=== PATIENT | female | born 1950 | race Caucasian/White ===

== ENCOUNTER 2018-01-29 02:02 | Outpatient (CLI) | payer BC, SELFPAY ==
[2018-01-29 16:30] LABS: HCT 38.8 % (36.0-46.0); HGB 12.9 g/dL (12.0-15.5); Mean Corp. HGB Concentration 33.2 g/dL (32.0-36.0); Mean Corpuscular Hemoglobin 29.8 pg (27.0-33.0); Mean Corpuscular Volume 89.6 fL (80-95); Mean Platelet Volume 9.9 fL (8.0-11.0); Platelet Count 242 x1000/uL (130-400); RBC 4.33 m/cumm (4.00-5.20); RBC Distribution Width 12.9 % (11.7-14.6); White Blood Cell Count 8.54 k/cumm (4.4-10.8)
[2018-01-29 17:39] LABS: ALT 34 U/L (12-78); AST 29 U/L (15-37); Albumin 3.9 g/dL (3.4-5.0); Alkaline Phosphatase 86 U/L (46-116); Anion Gap 11.1 mmol/L (3-11); BUN 21 mg/dL (7-18); Bilirubin, Total 0.5 mg/dL (0.2-1.0); CO2 25.9 mmol/L (21.0-32.0); CREATININE 1.01 mg/dL (0.55-1.02); Chloride 104 mmol/L (98-107); Cholesterol 217 mg/dL (50-200); Estimated GFR 54.51 (mL/min/1.73m2); Glucose 84 mg/dL (70-100); HDL Cholesterol 62 mg/dL (40-60); LDL CHOLESTEROL 125 mg/dL (<100); Sodium 141 mmol/L (136-145); Total Protein 7.4 g/dL (6.4-8.2); Triglyceride 175 mg/dL (30-150)
[2018-01-29 18:20] LABS: Calcium 8.8 mg/dL (8.5-10.1)
== END 2018-01-29 02:22 ==
PROVIDERS: PCP Family Medicine; Visit Provider Family Medicine
DX: D69.3 Immune thrombocytopenic purpura (principal); E78.5 Hyperlipidemia, unspecified; Z01.818 Encounter for other preprocedural examination; Z86.2 Personal history of diseases of the blood and blood-forming organs and certain disorders involving the immune mechanism
CPT/HCPCS: 80053; 80061; 83721; 85027

== ENCOUNTER 2018-02-08 08:58 | Day surgery (SDC) | payer BC, SELFPAY ==
--- NOTE | 2018-02-06 21:04 | POEE_ITS ---
History of Present Illness Narrative: The patient is a 67-year-old lady who presented with complaints of progressive decreased vision in her left eye at distance and intermediate. She notes her distance vision is blurry and has difficulty reading road signs. She also has significant difficulty with glare from headlights. On examination she was noted to have moderate nuclear and cortical cataract of the right eye with visual acuity of 20/100. The option of cataract surgery was offered to the patient and she wished to proceed. PFSH Family History Mother Diabetes Essential hypertension Heart disease Hyperlipidemia Father Personal history of malignant neoplasm Heart disease Myocardial infarction Parkinson's disease Sister Diabetes Essential hypertension Grandmother Pulmonary tuberculosis Grandfather Heart disease Grandmother Heart disease Sister No problems noted. Medical History Cortical cataract of right eye (Acute) Nuclear sclerotic cataract of right eye (Acute) Idiopathic angioedema Idiopathic thrombocytopenia purpura Left ventricular outflow obstruction NAUSEA WITH ANESTHESIA Thrombocytopenia Social History Smoking/Tobacco Use Status: Former Tobacco Use Surgical History Appendectomy section Colonoscopy - IV Sedation (03/24/16) Lithotripsy (~2000) Open Carpal Tunnel release Meds Home Medications Medication Instructions Recorded Confirmed Type calcium carbonate-vitamin D3 1,000 unit PO DAILY 03/18/13 02/04/18 History cetirizine [Zyrtec] 10 mg PO DAILY tab-cap 03/18/13 02/04/18 History epinephrine [Epipen 2-Henry] 0.3 mg IM ONCE #2 syringe 04/02/17 02/04/18 Rx simvastatin 20 mg PO DAILY #90 tab-cap 04/04/17 02/04/18 Rx Varicella-Zoster Ge/As01b/Pf 50 mcg IM ONCE #1 kit 10/02/17 01/23/18 Clinic [Shingrix Vial Kit] Allergies Allergy/AdvReac Type Severity Reaction Status Date / Time amoxicillin trihydrate Allergy Severe Hives Unverified 01/23/18 15:15 [From Augmentin] potassium clavulanate Allergy Severe Hives Unverified 01/23/18 15:15 [From Augmentin] Sulfa (Sulfonamide Allergy Severe Hives Unverified 01/23/18 15:15 Antibiotics) allopurinol Allergy Unknown Verified 02/04/18 14:09 Exam OCULAR EXAM:: Visual acuity at distance: Corrected to 20/100 OD, 20/30 OS Pupils: Pupils equal, round, and reactive without afferent pupillary defect IOP: 16 OD 16 OS. Extraocular Motility: Normal Pertinent Slit Lamp Findings: Significant for pupils dilating to 6 mm OU. 2+ nuclear with 1+ cortical cataract OD. 1-2+ nuclear with 1+ cortical cataract OS. Dilated Funduscopic Examination: Disc cupping is 0.2 OU with good color. The optic nerves have good perfusion and normal color. The retinal vasculature is normal without significant tortuosity or abnormality. The maculas are normal in appearance with normal contour and foveal reflex appropriate for age. The peripheral retina and vitreous are normal. BRIGHTNESS ACUITY TESTING (BAT):: Off right eye, 20/100 Low: 20/200 Medium: 20/200 High: 20/400 Assessment and Plan (1) Nuclear sclerotic cataract of right eye: Current visit: No Status: Acute Assessment: Visually significant cataract, right eye. Plan: Cataract extraction with intraocular lens implantation, right eye (2) Cortical cataract of right eye: Current visit: No Status: Acute Assessment: Visually significant cataract, right eye. Plan: Cataract extraction with intraocular lens implantation, right eye Note: NOTE:: The details of the planned surgery, including the risks, indications, limitations,expectations,outcome and possible complications were explained to the patient. The patient understands the complications including, but not limited to: infection, hemorrhage, posterior dislocation of the lens or nuclear fragments which may require the intervention of a vitreoretinal surgeon, possible loss of the eye, or from anesthetic complications. The patient has been made aware of the option of not having surgery, that vision following surgery may not be equal to that prior to surgery, and that the planned surgery may not achieve the intended results. Following this discussion, which the patient appeared to understand, the patient wishes to proceed with cataract surgery with lens implantation of the affected eye to improve and maximize vision.
[2018-02-08 09:29] VITALS: BP 166/95; PULSE 78; RESP 16; TEMP 35.9; O2SAT 99
[2018-02-08] MEDS: Lidocaine 2% Jelly 6 ML SYR (10:19)
[2018-02-08] MEDS: Balanced Salt Soln.-PLUS 500 ML BAG (10:23)
[2018-02-08] MEDS: Povidone-Iodine Ophth 30 ML BTL (10:23)
--- NOTE | 2018-02-08 10:48 | W.PM.DSUDISC ---
Discharge Plan Discharge Details Attending Provider: Puma Villalpando Primary Care Provider: Oxana Cantu Home Meds and New Rx's Prescriptions: No Action cetirizine [Zyrtec] 10 MG tablet 10 mg PO DAILY RF: 0 calcium carbonate-vitamin D3 1 EACH tablet 1,000 unit PO DAILY RF: 0 epinephrine [EpiPen 2-Henry] 0.3 MG/0.3 ML auto-injector 0.3 mg IM ONCE Qty: 2 RF: 0 simvastatin 20 MG tablet 20 mg PO DAILY Qty: 90 RF: 12 Varicella-Zoster Ge/As01b/Pf [Shingrix Vial Kit] 50 MCG INJ 50 mcg IM ONCE Qty: 1 RF: 1 Discharge Instructions Stand Alone Forms: Post-op Topical Cataract, Genaro Elliott (DSU) DS: Diagnosis Discharge Diagnosis (1) Nuclear sclerotic cataract of right eye: Status: Resolved (2) Cortical cataract of right eye: Status: Resolved
--- NOTE | 2018-02-08 10:49 | W.PM.OP ---
Date of service: 02/08/18 Time of Service: 10:49 Operative Note PRE-OP DIAGNOSIS: Cataract, right eye POST-OP DIAGNOSIS: same SURGEON: Puma Villalpando ANESTHESIA: MAC and local (sub-tenon's anesthetic infiltration) PATHOLOGY: none sent COMPLICATIONS: None Patient was transported to: same day Patient's condition: stable Implants: [employer] / [employer] Tecnis ZCB00 Indications: Progressive decreased vision due to cataract, right eye Procedure Description: CATARACT SURGERY OPERATIVE REPORT PREOPERATIVE DIAGNOSIS: Nuclear/cortical cataract, right eye POSTOPERATIVE DIAGNOSIS: Same OPERATION: Cataract extraction using phacoemulsification with posterior chamber intraocular lens implant, right eye. IOL: IOL Health Information Tech/Model: J&J Vision / PRETTY Tecnis ZCB00 IOL Power: + 25.0 diopters IOL Serial Number: [id number] Optic Diameter: 6.0mm Haptic/Overall Diameter: 13.0mm PHACO INFO: [employer]urion Vision System with OZil and Active Fluidics Cumulative Dispersed Energy (CDE): 8.86 seconds SURGEON: Puma Villalpando MD, SALMA ANESTHESIA: Monitored Anesthesia Care (MAC), with local sub-tenon's anesthetic infiltration COMPLICATIONS: None SPECIMENS: None INDICATIONS FOR PROCEDURE: The patient is a 67-year-old lady with history of diminished visual acuity in her right eye. She was noted to have significant nuclear and cortical cataract. She was significantly symptomatic that she desires cataract surgery and attempt to improve and maximize her vision PROCEDURE: The correct surgical eye was identified and marked as the right eye and the pupil was dilated in the preoperative area using mydriatics, cycloplegics, and NSAIDS (except in aspirin allergic patients). The dilated pupil size was 7.0 mm. Oral sedation was administered in the form of an Imprimis MKO Melt (midazolam 3mg/ketamine 25mg/ondansetron 2mg). The patient was brought to the operating room where cardiopulmonary monitoring was instituted and surgical time-out was performed, confirming the correct operative eye and IOL power. Topical anesthesia was administered and ophthalmic povidone-iodine 5% was instilled into the conjunctival fornices. Lidocaine gel was applied to the cornea and the ping-ocular area was prepped with Betadine 10% solution and draped in the usual sterile fashion for intraocular surgery. Steri-strips were used to cover the lashes and lid margins and an adhesive eye drape was placed. Care was taken to isolate the lashes and lid margins under the Steri-strips and adhesive eye drape. A lid speculum was placed between the lids of the operative eye and the Cassia-Shirley operating microscope was maneuvered into position. Travis scissors were then used to make a conjunctival buttonhole approximately 6mm posterior to the limbus in the inferonasal quadrant. Blunt dissection was carried out to expose bare sclera, and a blunt-tipped sub-tenon?s anesthesia cannula was introduced and passed posteriorly along the globe where non-preserved plain lidocaine was injected into posterior sub-Tenon?s space. A sideport knife was used to make a paracentesis port at the 7:00 postion and the anterior chamber was filled with Healon GV. A 2.4mm keratome knife was used to create a half-thickness groove at the limbus and then to construct a three-plane near-clear corneal tunnel extending 2.0mm into clear cornea at the 10:00 position. A flap was raised on the anterior capsule and capsulorhexis forceps were used to complete a continuous curvilinear capsulorhexis of 4.5 mm. Balanced salt solution was then used to perform cortical cleaving hydrodissection and nuclear hydrodelineation until the lens could be freely rotated within the capsular bag. The lens nucleus was then disassembled and removed within the capsular bag and iris plane using phacoemulsification. Residual cortical material was removed using the 45-degree angled silicone I/A tip with 0.3mm port. The posterior capsule was carefully polished to remove as much residual lens epithelial cells as safely possible. The capsular bag was then inflated and the anterior chamber deepened with viscoelastic. The lens implant described above was inserted into the capsular bag using the PRETTY [place] Injector. A Kuglen hook was used to dial the IOL into position. Residual viscoelastic was then removed first from posterior to the IOL, then from the anterior chamber using the I/A handpiece. The lens implant was noted to center nicely within the capsular bag. The incisions were stromally hydrated, and the anterior chamber was reformed using BSS. Then 0.4cc of moxifloxacin 1.5mg/ml were injected into the capsular bag and anterior chamber. The incisions were checked with a Weck spear and found to be secure. Several drops of ophthalmic povidone-iodine 5% were then applied to the eye followed by two drops of Imprimis combination moxifloxacin/dexamethasone solution. The drapes were removed and a clear plastic protective eye shield was placed over the eye. The patient was then returned to Same Day Surgery in stable condition.
[2018-02-08 11:05] VITALS: BP 131/91; PULSE 69; RESP 16; TEMP 36; O2SAT 97
== END 2018-02-08 11:17 | disposition home or self-care (01) ==
LOC: SUR 08:59
PROVIDERS: PCP Family Medicine; Visit Provider Ophthalmology
PROC: (CPT 66984; principal; 2018-02-08 10:50)
DX: H25.811 Combined forms of age-related cataract, right eye (principal)
CPT/HCPCS: 66984; V2632

== ENCOUNTER 2018-02-22 09:04 | Day surgery (SDC) | payer BC, SELFPAY ==
--- NOTE | 2018-02-21 12:35 | POEE_ITS ---
History of Present Illness Chief Complaint: Progressive decreased vision, left eye Narrative: Patient is a 67-year-old lady with history of progressive decreased vision of both distance and near in both eyes. She has significant difficulty driving at night. On examination she was noted to have moderate bilateral nuclear and cortical cataracts. She was significantly symptomatic that she desires cataract surgery which was performed OD on 02/08/2018. Postoperatively she has regained uncorrected vision of 20/30 in the right eye. She now presents for cataract surgery in the left eye. NOTE: The Chief Complaint, HPI, Past Medical History, Past Surgical History, Family History, Social History, Medications, and complete Ophthalmic Exam with detailed Assessment and Plan have already been documented in the patient's outpatient ophthalmic record and are not covered again in detail here. PFSH Family History Mother Diabetes Essential hypertension Heart disease Hyperlipidemia Father Personal history of malignant neoplasm Heart disease Myocardial infarction Parkinson's disease Sister Diabetes Essential hypertension Grandmother Pulmonary tuberculosis Grandfather Heart disease Grandmother Heart disease Sister No problems noted. Medical History Idiopathic angioedema Idiopathic thrombocytopenia purpura Left ventricular outflow obstruction NAUSEA WITH ANESTHESIA Thrombocytopenia Social History Smoking/Tobacco Use Status: Former Tobacco Use Surgical History Status post cataract extraction and insertion of intraocular lens of right eye ( Acute 02/08/18) Appendectomy section Colonoscopy - IV Sedation (03/24/16) Lithotripsy (~2000) Open Carpal Tunnel release Meds Home Medications Medication Instructions Recorded Confirmed Type calcium carbonate-vitamin D3 1,000 unit PO DAILY 03/18/13 02/08/18 History cetirizine [Zyrtec] 10 mg PO DAILY tab-cap 03/18/13 02/08/18 History epinephrine [Epipen 2-Henry] 0.3 mg IM ONCE #2 syringe 04/02/17 02/08/18 Rx simvastatin 20 mg PO DAILY #90 tab-cap 04/04/17 02/08/18 Rx Varicella-Zoster Ge/As01b/Pf 50 mcg IM ONCE #1 kit 10/02/17 02/08/18 Clinic [Shingrix Vial Kit] Allergies Allergy/AdvReac Type Severity Reaction Status Date / Time amoxicillin trihydrate Allergy Severe Hives Unverified 01/23/18 15:15 [From Augmentin] potassium clavulanate Allergy Severe Hives Unverified 01/23/18 15:15 [From Augmentin] Sulfa (Sulfonamide Allergy Severe Hives Unverified 01/23/18 15:15 Antibiotics) allopurinol Allergy Unknown Verified 02/04/18 14:09 Exam OCULAR EXAM:: Visual acuity at distance: Uncorrected 20/30 right eye. Corrected to 20/20 right eye. Corrected vision is 20/70, left eye. Pupils: Pupils equal, round, and reactive without afferent pupillary defect IOP: 16 OD, 16 OS. Extraocular Motility: Normal Pertinent Slit Lamp Findings: Significant for pupils dilating to 6 mm OU. Well- positioned PCIOL OD with clear posterior capsule. 1-2+ nuclear with 1+ cortical cataract OS. Dilated Funduscopic Examination: Disc cupping is 0.2 OU with good color. The optic nerves have good perfusion and normal color. The retinal vasculature is normal without significant tortuosity or abnormality. The maculas are normal in appearance with normal contour and foveal reflex appropriate for age. The peripheral retina and vitreous are normal. BRIGHTNESS ACUITY TESTING (BAT):: Off left eye 20/70 Low: 20/40 Medium: 20/60 High: 20/60 Assessment and Plan (1) Cortical cataract of left eye: Current visit: No Status: Acute Assessment: Visually significant cataract, left eye. Plan: Cataract extraction with intraocular lens implantation, left eye (2) Nuclear sclerotic cataract of left eye: Current visit: No Status: Acute (3) Status post cataract extraction and insertion of intraocular lens of right eye: Current visit: No Status: Acute Assessment: Visually significant cataract, left eye. Plan: Cataract extraction with intraocular lens implantation, left eye Note: NOTE:: The details of the planned surgery, including the risks, indications, limitations,expectations,outcome and possible complications were explained to the patient. The patient understands the complications including, but not limited to: infection, hemorrhage, posterior dislocation of the lens or nuclear fragments which may require the intervention of a vitreoretinal surgeon, possible loss of the eye, or from anesthetic complications. The patient has been made aware of the option of not having surgery, that vision following surgery may not be equal to that prior to surgery, and that the planned surgery may not achieve the intended results. Following this discussion, which the patient appeared to understand, the patient wishes to proceed with cataract surgery with lens implantation of the affected eye to improve and maximize vision.
[2018-02-22 09:22] VITALS: BP 146/93; PULSE 71; RESP 16; TEMP 35.4; O2SAT 99
[2018-02-22] MEDS: Balanced Salt Soln.-PLUS 500 ML BAG (10:26)
[2018-02-22] MEDS: Povidone-Iodine Ophth 30 ML BTL (10:27)
[2018-02-22] MEDS: Lidocaine 2% Jelly 6 ML SYR (10:27)
[2018-02-22] MEDS: Lidocaine 1% Pres-Free 5 ML VIAL (10:27)
--- NOTE | 2018-02-22 10:46 | W.PM.DSUDISC ---
Discharge Plan Discharge Details Attending Provider: Puma Villalpando Primary Care Provider: Oxana Cantu Home Meds and New Rx's Prescriptions: No Action cetirizine [Zyrtec] 10 MG tablet 10 mg PO DAILY RF: 0 calcium carbonate-vitamin D3 1 EACH tablet 1,000 unit PO DAILY RF: 0 epinephrine [EpiPen 2-Henry] 0.3 MG/0.3 ML auto-injector 0.3 mg IM ONCE Qty: 2 RF: 0 simvastatin 20 MG tablet 20 mg PO DAILY Qty: 90 RF: 12 Varicella-Zoster Ge/As01b/Pf [Shingrix Vial Kit] 50 MCG INJ 50 mcg IM ONCE Qty: 1 RF: 1 Discharge Instructions Stand Alone Forms: Post-op Topical Cataract, Genaro Elliott (DSU) DS: Diagnosis Discharge Diagnosis (1) Status post cataract extraction and insertion of intraocular lens of left eye: Status: Acute
--- NOTE | 2018-02-22 10:51 | ROE_ITS ---
Date of service: 02/22/18 Time of Service: 10:49 Operative Note DATE OF PROCEDURE: 02/22/18 PRE-OP DIAGNOSIS: Cataract, left eye POST-OP DIAGNOSIS: same PROCEDURE: Cataract extraction using phacoemulsification with intraocular lens implant, left eye SURGEON: Puma Villalpando ANESTHESIA: MAC and local (sub-tenon's anesthetic infiltration) PATHOLOGY: none sent COMPLICATIONS: None Patient was transported to: same day Patient's condition: stable Implants: [employer] / [employer] Tecnis ZCB00 Indications: Progressive decreased vision due to cataract, left eye Procedure Description: CATARACT SURGERY OPERATIVE REPORT PREOPERATIVE DIAGNOSIS: Nuclear/cortical cataract, left eye POSTOPERATIVE DIAGNOSIS: Same OPERATION: Cataract extraction using phacoemulsification with posterior chamber intraocular lens implant, left eye. IOL: IOL Representative/Model: J&J Vision / PRETTY Tecnis ZCB00 IOL Power: + 24.5 diopters IOL Serial Number: [id number] Optic Diameter: 6.0mm Haptic/Overall Diameter: 13.0mm PHACO INFO: [employer]oj [employer] Vision System with OZil and Active Fluidics Cumulative Dispersed Energy (CDE): 6.16 seconds SURGEON: Puma Villalpando MD, SALMA ANESTHESIA: Monitored Anesthesia Care (MAC), with local sub-tenon's anesthetic infiltration COMPLICATIONS: None SPECIMENS: None INDICATIONS FOR PROCEDURE: The patient is a 67-year-old lady with history of symptomatic bilateral nuclear and cortical cataracts. She is Ardie undergone cataract surgery in her right eye on 02/08/2018. She is doing well postoperatively in her right eye and now presents for cataract surgery in the left eye. PROCEDURE: The correct surgical eye was identified and marked as the left eye and the pupil was dilated in the preoperative area using mydriatics, cycloplegics, and NSAIDS (except in aspirin allergic patients). The dilated pupil size was 8.0 mm. Oral sedation was administered in the form of an Imprimis MKO Melt (midazolam 3mg/ketamine 25mg/ondansetron 2mg). The patient was brought to the operating room where cardiopulmonary monitoring was instituted and surgical time-out was performed, confirming the correct operative eye and IOL power. Topical anesthesia was administered and ophthalmic povidone-iodine 5% was instilled into the conjunctival fornices. Lidocaine gel was applied to the cornea and the ping-ocular area was prepped with Betadine 10% solution and draped in the usual sterile fashion for intraocular surgery. Steri-strips were used to cover the lashes and lid margins and an adhesive eye drape was placed. Care was taken to isolate the lashes and lid margins under the Steri-strips and adhesive eye drape. A lid speculum was placed between the lids of the operative eye and the Cassia-Shirley operating microscope was maneuvered into position. Travis scissors were then used to make a conjunctival buttonhole approximately 6mm posterior to the limbus in the inferonasal quadrant. Blunt dissection was carried out to expose bare sclera, and a blunt-tipped sub-tenon? s anesthesia cannula was introduced and passed posteriorly along the globe where non-preserved plain lidocaine was injected into posterior sub-Tenon?s space. A sideport knife was used to make a paracentesis port at the 12:00 postion and the anterior chamber was filled with Healon GV. A 2.4mm keratome knife was used to create a half-thickness groove at the limbus and then to construct a three-plane near-clear corneal tunnel extending 2.0mm into clear cornea at the 3:00 position. A flap was raised on the anterior capsule and capsulorhexis forceps were used to complete a continuous curvilinear capsulorhexis of 5.0 mm. Balanced salt solution was then used to perform cortical cleaving hydrodissection and nuclear hydrodelineation until the lens could be freely rotated within the capsular bag. The lens nucleus was then disassembled and removed within the capsular bag and iris plane using phacoemulsification. Residual cortical material was removed using the 45-degree angled silicone I/A tip with 0.3mm port. The posterior capsule was carefully polished to remove as much residual lens epithelial cells as safely possible. The capsular bag was then inflated and the anterior chamber deepened with viscoelastic. The lens implant described above was inserted into the capsular bag using the PRETTY [employer] [place] Injector. A Kuglen hook was used to dial the IOL into position. Residual viscoelastic was then removed first from posterior to the IOL, then from the anterior chamber using the I/A handpiece. The lens implant was noted to center nicely within the capsular bag. The incisions were stromally hydrated , and the anterior chamber was reformed using BSS. Then 0.4cc of moxifloxacin 1.5mg/ml were injected into the capsular bag and anterior chamber. The incisions were checked with a Weck spear and found to be secure. Several drops of ophthalmic povidone-iodine 5% were then applied to the eye followed by two drops of Imprimis combination moxifloxacin/dexamethasone solution. The drapes were removed and a clear plastic protective eye shield was placed over the eye. The patient was then returned to Same Day Surgery in stable condition.
[2018-02-22 11:10] VITALS: BP 113/72; PULSE 67; RESP 16; TEMP 36.4; O2SAT 97
== END 2018-02-22 11:15 | disposition home or self-care (01) ==
LOC: SUR 09:04
PROVIDERS: PCP Family Medicine; Visit Provider Ophthalmology
PROC: (CPT 66984; principal; 2018-02-22 10:50)
DX: H25.812 Combined forms of age-related cataract, left eye (principal); Z98.41 Cataract extraction status, right eye; Z96.1 Presence of intraocular lens
CPT/HCPCS: 66984; V2632

== ENCOUNTER 2018-08-27 00:17 | Outpatient (CLI) | payer BC, SELFPAY ==
--- NOTE | 2018-08-27 16:00 | DI.MAMMO_ITS ---
SYMPTOM/DIAGNOSIS: SCREENING, Z12.31 MAMMOGRAMS: Mammograms were interpreted according to the usual protocol including computer analysis with CAD system, tomosynthesis and C view imaging. The breast tissue is of moderate radiodensity. There is no evidence of a mass. There are no suspicious calcifications and there has been no significant interval change when compared with prior images. SUMMARY: No evidence of malignancy. Category 1, yearly screening mammography is recommended. [facility] ASSESSMENT OF FINDINGS: Negative. Category 1. Patient will receive a letter notifying them of these results. BI-RADS category B. There are scattered areas of fibroglandular density.
== END 2018-08-27 00:37 ==
PROVIDERS: PCP Family Medicine; Visit Provider Family Medicine
DX: Z12.31 Encounter for screening mammogram for malignant neoplasm of breast (principal)
CPT/HCPCS: 77063; 77067

== ENCOUNTER 2019-02-11 16:04 | Outpatient (CLI) | payer BC, SELFPAY ==
[2019-02-11 16:29] LABS: HCT 39.6 % (36.0-46.0); HGB 13.3 g/dL (12.0-15.5); Mean Corp. HGB Concentration 33.6 g/dL (32.0-36.0); Mean Corpuscular Hemoglobin 29.3 pg (27.0-33.0); Mean Corpuscular Volume 87.2 fL (80-95); Platelet Count 262 x1000/uL (130-400); RBC 4.54 m/cumm (4.00-5.20); RBC Distribution Width 13.1 % (11.7-14.6); White Blood Cell Count 8.44 k/cumm (4.4-10.8)
== END 2019-02-11 16:24 ==
PROVIDERS: PCP Family Medicine; Visit Provider Nurse Practitioner
DX: D69.3 Immune thrombocytopenic purpura (principal)
CPT/HCPCS: 36415; 85027

== ENCOUNTER 2019-02-11 18:25 | Outpatient (REF) | payer BC, SELFPAY ==
--- NOTE | 2019-02-11 15:30 | PAPNONF_PTH ---
PATIENT: Nimco Leal LOC: [facility] U#:[id number] AGE/SX: 68/F ROOM: RE02/11/[address]: Shaylee Carter, PhD [employer] : 1950 BED: DIS: 02/11/2019 SPEC #: [id number] RECD: 02/11/19 18:52 STATUS: ANITA REHector #: [id number] ANAHI: 02/11/19 15:[address]: Shaylee Carter DEPT: [facility] Cytology RECD BY: Rosa Kearney ENTERED: 02/11/19 18:53 SP TYPE: ROSALES DUNN DR: Oxana Cantu MD, DC Tissues: 1 - BODY FLUID CYTO(SPUTUM/URINE)[facility] Procedures: BODY FLUID CYTO(URINE/SPUTUM) Comments: [id number] (TOTAL VOLUME = 70 ml's) (35 ml's URINE & 35 ml's CYTOLYT ADDED IN 2 CONTAINERS)
== END 2019-02-11 18:45 ==
LOC: LBN 18:25
PROVIDERS: PCP Family Medicine; Visit Provider Nurse Practitioner
DX: R31.9 Hematuria, unspecified
CPT/HCPCS: 88104

== ENCOUNTER 2019-11-04 01:36 | Outpatient (CLI) | payer BC, SELFPAY ==
--- NOTE | 2019-11-04 07:00 | DI.MAMMO_ITS ---
EXAM: MG MAMMO SCREENING CLINICAL HISTORY: screening, Z12.39 TECHNIQUE: Bilateral full field digital CC and MLO mammographic images were obtained with 3D tomosyn thesis and utilizing computer aided detection (CAD). COMPARISON: Available for comparison. FINDINGS: Masses/Architectural Distortion: None seen. Microcalcifications: No suspicious pleomorphic-type are seen. Skin Thickening/Nipple Retraction: None. IMPRESSION: 1. No significant interval change with no specific features of malignancy noted. 2. Unless there is more urgent need, screening mammography is recommended, as per [place] [employer] guidelines. BI-RADS Category 1 - Negative Breast Density - Category B - Scattered areas of fibroglandular density A negative radiographic report should not delay biopsy if a dominant or clinically suspicious mass is present. Up to ten percent of cancers are not identified on mammography. A negative report may reinforce clinical impression. Adenosis and dense breasts may obscure an underlying neoplasm. False positive reports average 6 to 10%. Patient will receive a letter notifying them of these results.
== END 2019-11-04 01:56 ==
PROVIDERS: PCP Family Medicine; Visit Provider Nurse Practitioner
DX: Z12.31 Encounter for screening mammogram for malignant neoplasm of breast (principal)
CPT/HCPCS: 77063; 77067

== ENCOUNTER 2019-11-04 02:40 | Outpatient (CLI) | payer BC, SELFPAY ==
[2019-11-04 09:57] LABS: HCT 40.3 % (36.0-46.0); HGB 13.7 g/dL (12.0-15.5); Mean Corpuscular Hemoglobin 29.5 pg (27.0-33.0); Mean Corpuscular Volume 86.7 fL (80-95); Mean Platelet Volume 9.8 fL (8.0-11.0); Platelet Count 261 x1000/uL (130-400); RBC 4.65 m/cumm (4.00-5.20); RBC Distribution Width 13.3 % (11.7-14.6); White Blood Cell Count 6.58 k/cumm (4.4-10.8)
[2019-11-04 10:16] LABS: Hemoglobin A1C 6.5 % (3.8-5.6)
[2019-11-04 10:52] LABS: ALT 49 U/L (14-59); AST 38 U/L (15-37); Albumin 4.1 g/dL (3.4-5.0); Alkaline Phosphatase 72 U/L (46-116); Anion Gap 12.5 mmol/L (3-11); BUN 20 mg/dL (7-18); Bilirubin, Total 0.6 mg/dL (0.2-1.0); CO2 23.5 mmol/L (21.0-32.0); CREATININE 1.02 mg/dL (0.55-1.02); Calcium 9.6 mg/dL (8.5-10.1); Calculated LDL 99 mg/dL (<100); Chloride 102 mmol/L (98-107); Cholesterol 181 mg/dL (<200); Estimated GFR 53.73 (mL/min/1.73m2); Glucose 124 mg/dL (74-106); HDL Cholesterol 59 mg/dL (40-60); Potassium 4.7 mmol/L (3.5-5.1); Sodium 138 mmol/L (136-145); Total Protein 7.5 g/dL (6.4-8.2); Triglyceride 118 mg/dL (<150)
[2019-11-04 11:16] LABS: Vitamin B12 402 pg/mL (193-986)
== END 2019-11-04 03:00 ==
PROVIDERS: PCP Family Medicine; Visit Provider Nurse Practitioner
DX: D69.3 Immune thrombocytopenic purpura (principal); E78.00 Pure hypercholesterolemia, unspecified; E78.5 Hyperlipidemia, unspecified; G56.00 Carpal tunnel syndrome, unspecified upper limb; R73.01 Impaired fasting glucose; R20.0 Anesthesia of skin; R20.2 Paresthesia of skin
CPT/HCPCS: 36415; 80053; 80061; 85027; 82607; 83036

== ENCOUNTER 2020-03-10 03:05 | Outpatient (CLI) | payer BC, SELFPAY ==
[2020-03-10 17:02] LABS: Hemoglobin A1C 6.1 % (<5.7)
[2020-03-10 17:24] LABS: TSH (W/Ref FT4) 4.51 uIU/mL (0.36-3.74)
[2020-03-10 17:43] LABS: FREE T4 0.81 ng/dL (0.76-1.46)
== END 2020-03-10 03:25 ==
PROVIDERS: PCP Family Medicine; Visit Provider Family Medicine
DX: E11.9 Type 2 diabetes mellitus without complications (principal); R20.0 Anesthesia of skin; R20.2 Paresthesia of skin
CPT/HCPCS: 36415; 83036; 84439; 84443

== ENCOUNTER 2020-04-13 09:14 | Outpatient (REF) | payer BC, SELFPAY ==
[2020-04-14 12:21] LABS: Campylobacter PCR Negative (Negative); Salmonella PCR Negative (Negative); Shiga Toxin PCR Negative (Negative); Shigella/Enteroinvasive Ecoli Negative (Negative)
== END 2020-04-13 09:34 ==
LOC: LBN 09:14
PROVIDERS: PCP Family Medicine; Visit Provider Family Medicine
DX: R19.7 Diarrhea, unspecified (principal)
CPT/HCPCS: 87329; 87505

== ENCOUNTER 2020-04-22 15:14 | Outpatient (REF) | payer BC, SELFPAY ==
--- NOTE | 2020-04-22 15:00 | SKI_PTH ---
PATIENT: Nimco Leal LOC: [facility] U#:[id number] AGE/SX: 69/F ROOM: RE04/22/[address]: Oxana Cantu MD, DC : 1950 BED: DIS: 04/22/2020 SPEC #: [id number] RECD: 04/23/20 12:50 STATUS: ANITA REQ #: [id number] ANAHI: 04/22/20 15:[address]: Oxana Cantu DEPT: Surgical Specimen RECD BY: Rosa Kearney Tissues: 1 - SKIN BIOPSY(SHAVE/PUNCH) Procedures: SKIN LEVEL 4 SPECIAL STAIN 1 Comments: [id number]
== END 2020-04-22 15:34 ==
LOC: LBN 15:14
PROVIDERS: PCP Family Medicine; Visit Provider Family Medicine
DX: L85.8 Other specified epidermal thickening (principal); R23.4 Changes in skin texture
CPT/HCPCS: 88305; 88312

== ENCOUNTER 2020-06-18 19:00 | Outpatient (CLI) | payer BC, SELFPAY ==
[2020-06-20 16:56] LABS: COVID-19 RT-PCR UVMMC Result Negative (Negative)
== END 2020-06-18 19:01 | disposition home or self-care (01) ==
LOC: LBO 06-23 19:00
PROVIDERS: PCP Family Medicine; Visit Provider Surgery
DX: Z20.822 Contact with and (suspected) exposure to COVID-19 (principal); Z01.818 Encounter for other preprocedural examination
CPT/HCPCS: U0003

== ENCOUNTER 2020-06-19 08:19 | Emergency (ER) | payer BC, SELFPAY ==
[2020-06-19] VITALS (23 sets, daily range): BP systolic 137–188; BP diastolic 74–94; PULSE 63–96; RESP 7–25; TEMP 36.4; O2SAT 93–99
--- NOTE | 2020-06-19 08:15 | RT.EKG_ITS ---
APPROVED REPORT Exam: Resting ECG Patient Location: E HR:83 bpm ECG Measurements Heart Rate 83 AXIS MD 160 P 24 QRSd 87 QRS 4 QT 385 T 45 QTc 452 Conclusion Sinus rhythm...normal P axis, V-rate 60- 99 Probable left atrial enlargement...P >50mS, <-0.10mV V1 Inferior infarct, age indeterminate...Q>35mS, T neg, II III aVF no stemi
--- NOTE | 2020-06-19 09:00 | W.ED.GENAD ---
Discharge Plan Disposition Patient Disposition: HOME Condition: Stable Discharge Details Clinical Impression: HTN (hypertension), Blood glucose elevated Primary Care Provider: Oxana Cantu ED Midlevel Provider: Lina Cruz Home Meds and New Rx's Prescriptions: No Action epinephrine [EpiPen 2-Henry] 0.3 mg/0.3 mL auto-injector 0.3 mg IM ONCE PRN (Reason: hypersensitivity reaction) Qty: 2 RF: 3 cetirizine [Zyrtec] 10 MG tablet 10 mg PO DAILY RF: 0 calcium carbonate-vitamin D3 1 EACH tablet 1,000 unit PO DAILY RF: 0 simvastatin 20 mg tablet 20 mg PO DAILY Qty: 90 RF: 12 triamcinolone acetonide 0.1 % cream 1 applic topical BID Qty: 80 RF: 0 Discharge Instructions Instructions: Hypertension (ED) Additional Instructions: Please return to the emergency department with any development of significant bleeding increasing blood pressure, chest pain, shortness of breath, difficulty with urination, vision changes. Please monitor your blood pressure 1-2 times daily I recommend morning and evening. Please follow-up with your primary care provider for continued discussion about medication management. Medical Decision Making Was noted to be 167/91 yesterday evening and 175/105 this morning on her home BP machine. She has had no chest pain, shortness of breath, visual changes or difficulty with urination. She is not currently on any blood pressure medications as she is being closely followed by her primary care provider Dr. Susannah Cantu and had had previous allergies/side effects to medications including amlodipine, lisinopril, hydrochlorothiazide. Since April they have been managing her blood pressure with diet and exercise. She shows me several blood pressure readings over the last couple of months and only readings yesterday evening and this morning were elevated to a mildly concerning level. Her initial blood pressure she came in was 188/81 however after a short period of time in the room and during my exam her blood pressure is noted to be 156/87. She continues to deny chest pain or shortness of breath. She has been without cough cold or congestion recently. She has had no fevers or chills. She has been able to eat and drink normally. She has had no increased frequency, urgency with urination, no dysuria or hematuria. Patient does endorse that she has had high levels of anxiety recently as she is scheduled for hernia repair of this coming Sunday. She was in her general surgeon's office this past Sunday and blood pressure was noted to be with systolics of 188 however by the time she had left the clinic visit her blood pressure had returned to a normal range. There planning to continue with surgery this coming Sunday. EKG is obtained and discussed with Dr. Rojas. No concerning findings at this time. Please see chart for further details. On reevaluation patient's blood pressure continues to decrease throughout her time here. She continues to be without chest pain or shortness of breath. Screening laboratories obtained for reassurance are significant for glucose noted to be 147. I discussed this with the patient she tells me she has also been monitoring this at home as she has been borderline high over the last couple of months. BUN is slightly elevated at 19. She does endorse that she has not been drinking fluids today and often does not drink enough water. She is drinking water as we speak. I have discussed with her that at this time she does not meet criteria for aggressive blood pressure reduction and that she should continue to monitor this at home. She continues to be significantly elevated she is encouraged to return here as needed as well as if she develops chest pain, shortness of breath or any other concerning symptoms. Otherwise as shared my note with patient's primary care provider today and recommended that if she does not hear back from them this coming Sunday that she call to schedule a follow-up appointment in clinic. Differential diagnosis includes but not limited to hypertension without signs of hypertensive emergency or urgency at this time. I suspect underlying stress causing some degree of increased of blood pressure. At this point we will proceed with EKG and basic labs including CBC and BMP. I will continue to monitor the patient's blood pressure while she is here. I will communicate with the primary care provider so they are aware of her visit here today and can continue to appropriately monitor blood pressure and medication adjustment on an outpatient basis. All of the patient's questions were answered and she felt comfortable with the care plan discussed. MATHEUS Rinaldi is a 69-year-old female who presents with concerns for high blood pressure noted this morning to be as high as 175/105 at home and last night 167/91 yesterday evening. She denies chest pain or shortness of breath. She is here to be checked as she cannot get in with her primary care provider because it is the weekend. General Date/Time Provider Initiated Documentation: 06/19/20 08:43. Related Data Home Medications Medication Instructions Recorded Confirmed calcium carbonate-vitamin D3 1,000 unit PO DAILY 03/18/13 06/19/20 cetirizine [Zyrtec] 10 mg PO DAILY tab-cap 03/18/13 06/19/20 simvastatin 20 mg tablet 20 mg PO DAILY #90 tab-cap 10/28/19 06/19/20 epinephrine 0.3 mg/0.3 mL 0.3 mg IM ONCE PRN #2 syrg 03/16/20 06/19/20 injection, auto-injector triamcinolone acetonide 0.1 % 1 applic TOPICAL BID #80 g 04/28/20 06/19/20 topical cream Previous Rx's Medication Instructions Recorded simvastatin 20 mg tablet 20 mg PO DAILY #90 tab-cap 10/28/19 epinephrine 0.3 mg/0.3 mL 0.3 mg IM ONCE PRN #2 syrg 03/16/20 injection, auto-injector triamcinolone acetonide 0.1 % 1 applic TOPICAL BID #80 g 04/28/20 topical cream Allergies Allergy/AdvReac Type Severity Reaction Status Date / Time amoxicillin trihydrate Allergy Severe Hives Unverified 06/19/20 08:32 [From Augmentin] potassium clavulanate Allergy Severe Hives Unverified 06/19/20 08:32 [From Augmentin] Sulfa (Sulfonamide Allergy Severe Hives Unverified 06/19/20 08:32 Antibiotics) clindamycin Allergy Intermediate Rash Verified 06/19/20 08:32 allopurinol Allergy Unknown Verified 06/19/20 08:32 losartan Allergy mouth Verified 06/19/20 08:32 numbness amlodipine AdvReac Tingling Verified 06/19/20 08:32 General Stated Complaint: GenMedical CIARRA: 3 Review of Systems All systems reviewed & are unremarkable except as noted in HPI and below [facility] Medical History Abnormal mammogram (04/05/05) Anxiety Carpal tunnel syndrome (08/03/07) Diabetes Glossodynia (07/04/12) Hematuria, unspecified IVP/Kileen F/U Hyperlipidemia 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) Impaired fasting glucose (09/14/14) Incisional hernia (07/04/12) Kidney stone (08/03/07) Uric acid Knee pain (09/14/14) Left ventricular outflow obstruction Left ventricular outflow tract obstruction (08/03/07) Systolic murmur; w/o significant obstruction at rest NAUSEA WITH ANESTHESIA Numbness and tingling Polyp of colon 04/16/13 TUBULAR ADENOMA Rupture of appendix (08/03/07) Sinus infection Spasm of thoracic back muscle Thrombocytopenia Upper back pain Surgical History Appendectomy section X 2 Colonoscopy - IV Sedation (03/24/16) 03/21/10 04/16/13 History of appendectomy History of section History of lithotripsy Lithotripsy (~2000) Open Carpal Tunnel release RIGHT Status post carpal tunnel release Status post cataract extraction and insertion of intraocular lens of left eye (02/22/18) Status post cataract extraction and insertion of intraocular lens of right eye (02/08/18) Family History Mother , AGE 83 Diabetes Essential hypertension Heart disease Hyperlipidemia Father , AGE 87 Myocardial infarction Parkinson's disease Colon cancer CHF (congestive heart failure) Sister , AGE 68 Diabetes Hypertension Heart disease Maternal Grandmother Pulmonary tuberculosis Maternal Grandfather Heart disease Paternal Grandmother , AGE 75 Heart disease Sister Celiac disease Social History Smoking/Tobacco Use Status: Former Tobacco Use Quit Date: 05/07/74 Tobacco: How many years used: 7 Smoking risk assessment performed?: Yes Alcohol Intake: current Alcohol Intake frequency: a few times a month Drug use: Never Substance use type: does not use Caregiver/Support person: No Household members: spouse Housing: house Communication Needs: None Do you need help understanding health information?: Never Pets and animals: No Sexually active: Yes Current gender identity: female What is your relationship status?: How often do you talk on the phone with friends or family?: three or more times per week How often do you get together with friends or relatives?: three or more times per week How often do you attend evangelical or congregation services?: 4 or more times per year Do you belong to any clubs or organized social groups?: yes Panel score (0-1 are the most socially isolated patients): 4 What type of physical activity do you participate in: walking and yoga Duration: 30-45 minutes/day Frequency: 1-2 times per week Jeannie/Zoroastrian: Confucianist Special jeannie needs: No Seatbelt use: always Helmet use: No Drive intox or ride w/intox xm1 tank driver: No Do you feel safe at home: Yes Do you feel safe in your relationship?: Yes Exam Narrative Exam Narrative: CONSTITUTIONAL: Afebrile, well-appearing older adult female, sitting in stretcher, in no acute distress. SKIN: [place], warm and moist. No diaphoresis, pallor, cyanosis, icterus or edema. No lesions, hives, petechiae or ecchymoses. EYES: Pupils equal and round. EOMI voluntarily. Conjunctivae clear w/o erythema or injection. Sclera white. HENT: Head normocephalic, atraumatic. NECK: Trachea midline. Neck supple with full range of motion. No nuchal rigidity. RESPIRATORY: CTAB. No wheezes, rhonchi or rales. Breathing non-labored. CARDIOVASCULAR: RRR with audible murmur noted, patient states she has had this lifelong. No rubs or gallops. S1/ S2 present. GI: BSP. Abdomen soft, nondistended, non-tender. No palpable masses or HSM. No rebound, guarding or rigidity. MUSCULOSKELETAL: Extremities appear atraumatic with no obvious deformities, cyanosis, clubbing, or edema and with FROM. NEURO: Cranial nerves II-XII grossly intact. No significant motor or sensory deficits appreciated in the upper or lower extremities. No obvious ataxia PSYCH: Appropriate mood and affect. Course Vital Signs Vital signs: Vital Signs Temperature 97.5 F L 06/19/20 08:26 Pulse 84 06/19/20 08:26 Respiratory Rate 23 06/19/20 08:26 Blood Pressure 188/81 H 06/19/20 08:26 Pulse Oximetry 98 06/19/20 08:26 Temperature 97.5 F L 06/19/20 08:26 Temperature Source Skin 06/19/20 08:26 Pulse 84 06/19/20 08:26 Respiratory Rate 23 06/19/20 08:26 Respiratory Effort Non-Labored 06/19/20 08:31 Blood Pressure 188/81 H 06/19/20 08:26 Blood Pressure Position Sitting 06/19/20 08:26 Pulse Oximetry 98 06/19/20 08:26 Oxygen Delivery Method Room Air 06/19/20 08:26 Oxygen Flow Rate 0 06/19/20 08:26 Pain Level 0 06/19/20 08:26
[2020-06-19 09:33] LABS: HCT 42.7 % (36.0-46.0); HGB 14.3 g/dL (11.2-15.7); MCH 29.4 pg (27.0-33.0); MCHC 33.5 % (32.0-36.0); MCV 87.9 fL (80-95); MPV 10.2 fL (8.0-11.0); Platelet Count 221 10^3/uL (130-400); RBC 4.86 10^6/uL (3.93-5.22); RDW 12.6 % (11.7-14.6); RDW-SD 40.4 fL; WBC 6.83 10^3/uL (4.4-10.8)
[2020-06-19 09:43] LABS: Anion Gap 10.9 mmol/L (3-11); BUN 19 mg/dL (7-18); CO2 25.1 mmol/L (21.0-32.0); CREATININE 0.9 mg/dL (0.55-1.02); Calcium 9.2 mg/dL (8.5-10.1); Chloride 105 mmol/L (98-107); Glucose 147 mg/dL (74-106); Potassium 3.9 mmol/L (3.5-5.1); Sodium 141 mmol/L (136-145)
== END 2020-06-19 10:35 | disposition home or self-care (01) ==
PROVIDERS: PCP Family Medicine; Visit Provider Physician Assistant Medical
DX: I10 Essential (primary) hypertension (principal); R73.9 Hyperglycemia, unspecified
CPT/HCPCS: 36415; 80048; 85027; 93005; 99283; 93010

== ENCOUNTER 2020-06-23 06:16 | Day surgery (SDC) | payer BC, SELFPAY ==
--- NOTE | 2020-06-21 13:50 | PDOC.ANES ---
Date of service: 06/21/20 Time of Service: 13:50 Anesthesia Note Report Anesthesia Note: Nimco has been off her BP medication for a period of time but was feeling her BP was too high. She recently was seen in our ED for this. As of today, she has started metoprolol and will monitor her blood pressure. She was in the 180's/100's in the ED. Today she is 150's/80's and feels well. She was advised if her BP is poorly controlled, then her procedure will likely be postponed. She is aware of this and will continue to take her medication as prescribed. Also of note is that she has had PONV and will likely require a TIVA.
[2020-06-23] VITALS (11 sets, daily range): BP systolic 94–137; BP diastolic 47–85; PULSE 49–58; RESP 16–25; TEMP 35.8–36.6; O2SAT 93–99
[2020-06-23] MEDS: Lactated Ringers 1,000 ML 80 ML IV (06:45)
--- NOTE | 2020-06-23 06:51 | ROE_ITS ---
Date of service: 06/23/20 Time of Service: 09:37 Operative Note Operative Note DATE OF PROCEDURE: 06/23/20 PRE-OP DIAGNOSIS: Ventral incisional Hernia POST-OP DIAGNOSIS: same PROCEDURE: Laparoscopic , hand assisted, incisional Hernia repair with mesh SURGEON: Slime Craven [facility] LE[facility]: Vero Levine ANESTHESIA TYPE: General LMA/ETT (ASA 2/ Romina Connor CRNA) Refer to Anesthesia Record ESTIMATED BLOOD LOSS: 25 PATHOLOGY: none sent COMPLICATIONS: None Patient was transported to: PACU Patient's condition: stable Implants: Ventralight ST Mesh with ECHO PS: REF [id number] LOT [id number] EXP 2021-07-04 Indications: Mrs. Leal is a pleasant 69-year-old female who underwent an open appendectomy many years ago. Shortly after her surgery she developed a small lump just to the right of her incision. She was diagnosed with an incisional hernia. It did really not bother her until about a year ago when she felt that it had grown in size and she was not able to completely reduce it. She denies any nausea, vomiting or changes in bowel habits. We discussed laparoscopic hernia repair as well as open hernia repair. Laparoscopic hernia repair is what I would recommend for her. We reviewed the surgery using a pamphlet. We reviewed the anatomy. We reviewed risks and benefits and alternatives. We also discussed Covid testing and quarantine requirements. Risks, benefits and complications have been reviewed. Complications include but are not limited to bleeding, pain, infection, injury to underlying structures like bowel and adverse reaction to the medication. Questions were entertained and answered to their satisfaction and they wished to proceed. No guarantees were given or implied. COVID-19 testing explained to the patient. Reason for test reviewed. Quarantine per state requirements reviewed with patient. Patient understands and agrees to testing. Findings: Entire omentum in the hernia defect that measured 8 x 3 cm Procedure Description: After informed consent was obtained the patient was taken to the operating room placed in the supine position, SCDs were applied, as well as monitors. A timeout was done. The patient was then placed under general anesthesia and intubated without any difficulty. At this point the abdomen was prepped and draped in a sterile surgical fashion with chlorhexidine. A second timeout was done and the patient's name, date of , operation to be performed, DVT prophylaxis, antibiotic given, and fire risk was assessed. 2% Percent lidocaine was injected into the dermis in the left upper quadrant. A small 12 mm incision was made with a 15 blade. The subcutaneous tissue was bluntly dissected with a hemostat. The fascia was grasped with cockers and the fascia was opened sharply with scissors. The 12 mm port was then placed under direct visualization. The abdomen was insufflated. The hernia defect was rosaline ntified along her old incision. The entire omentum was up in the hernia defect. The local anesthetic was then injected in the right upper quadrant area and a 5 mm incision was made with an 11 blade. A 5 mm port was then placed under direct visualization. A small 5 mm incision was made with an 11 blade and another 5 mm port was placed under direct visualization into the abdomen. The local anes thetic was then injected in the right upper quadrant area. Using a laparoscopic Ligasure the omentum was gently taken down. I was unable to get all the omentum down as it was tunneling laterally under skin. I started to tear the omentum as I was trying to gently reduce it. I made the decision to open her old incision to safely reduce the omentum. The camera was removed. 2% Lidocaine was injected along the midline incision. The incision was opened with a 10 blade. Dissection was taken down to the omentum within the hernia sac using cautery. The hernia sac was opened. The omentum was then gently removed out of the hernia sac under the skin laterally. The omentum was then gently placed back into the abdomen. The fascia was grasped with cockers. The defect was measured at 8 x 3 cm. A round 14.5 cm Ventralight mesh was placed into the abdomen. The ECHO balloon was induflated. Next 20 cc of exparel mixed 50/50 with 0.25% Bipivocaine was injected into the fascia. The fascia was closed with a #1 Vicryl suture. The hernia sac was dissected away from the subcutaneous tissue and the fascia. Bleeding was stopped with cautery. The subcutaneous tissue was re-approximated with 3-0 Vicryl. The abdomen was insufflated and the camera and a grasper was placed into the abdomen. The balloon along the mesh was inflated. The mesh was pulled up and secured by placing a hemostat on the insuflation catheter. Using a 5 mm articulating Tacker, the mesh was tacked up to the abdominal wall circumferentially. Once in good position the mesh balloon was deflated and removed through the 11 port site. The omentum was inspected one more time and no bleeding was noted. Good coverage of the entire midline incision was noted with this mesh. The 11 mm port was removed and the José Antonio Amrit was inserted and the fascia was closed with 0 vicryl. the last two ports were removed. The skin was then closed with 4-0 Vicryl. The skin was cleaned and dried. Mastasol and steri-strips were applied. Mepitel border dressing was applied to the midline incision. 2x2 were applied to the laparoscopic inicision sites and secured with tegaderm. The patient was woken up, extubated and taken back to recovery room in stable condition. There were no immediate complications. Sponge instrument needle counts were correct at the end of the case x2.
--- NOTE | 2020-06-23 06:54 | W.PM.DSUDISC ---
Discharge Plan Disposition Patient Disposition: HOME Condition: Good Discharge Details Reason For Visit: Ventral hernia repair Attending Provider: Silme Craven Primary Care Provider: Oxana Cantu Home Meds and New Rx's Prescriptions: New tramadol 50 mg tablet 50 mg PO Q6H PRNQty: 14 RF: 0 Continued epinephrine [EpiPen 2-Henry] 0.3 mg/0.3 mL auto-injector 0.3 mg IM ONCE PRN (Reason: hypersensitivity reaction) Qty: 2 RF: 3 cetirizine [Zyrtec] 10 MG tablet 10 mg PO DAILY RF: 0 calcium carbonate-vitamin D3 1 EACH tablet 1,000 unit PO DAILY RF: 0 simvastatin 20 mg tablet 20 mg PO DAILY Qty: 90 RF: 12 triamcinolone acetonide 0.1 % cream 1 applic topical BID Qty: 80 RF: 0 metoprolol succinate 25 mg tablet extended release 24 hr 25 mg PO DAILY Qty: 30 RF: 4 Discharge Instructions Additional Instructions: Activity at Home after surgery: 1. Make sure you walk outside at least 4 times per day 2. You should be able to climb a flight of stairs 3. No driving while in pain or taking pain medications 4. No strenuous activity or heavy lifting for 2 weeks (laparoscopic surgery) Diet, Nutrition, & wound healin. Avoid alcohol until after you are recovered from your surgery 2. Make sure to eat plenty of lean protein (meat, fish, eggs, cottage cheese, beans) 3. Eat a variety of fruits and vegetables. Eat plenty of high fiber foods to avoid constipation. 4. Drink plenty of liquids to stay hydrated and avoid constipation Pain Medications: 1. Tylenol 650mg every 6 hours as needed and Ibuprofen 600 mg every 6 hours as needed. You may alternate between the 2 medications every 3 hours 2. If a narcotic has been prescribed take as directed only for breakthrough pain For Constipation: 1. Take Milk of Magnesia or MiraLax as needed for constipation Other: 1. You may shower daily. Do not scrub the incisions 2. Do not soak the incisions for 1 week 3. You may alternate ice and heat as needed for pain and swelling Wound Care: 1. Keep the incisions clean and dry Other Services that may have been ordered: 0 Home Health- to help with dressing changes 0 Outpatient physical therapy Please call our office if you develop: 1. Fevers >101.5 2. Nausea or Vomiting 3. Worsening pain 4. Redness and thick discharge from the wounds If after hours please call the Hospital at and ask to speak to the on-call surgeon Referrals: Slime Craven MD [ [facility] STAFF PHYSICIAN] - 07/06/20 8:00 am Activity:: no lifting >20 lb x 4 weeks Remove Dressings/Wound Care:: Do Not Remove Diet:: As Tolerated Discharge Orders Discharge Orders: Discharge Order (Routine); Ordered 06/23/20 Ordered By: Slime Craven
[2020-06-23] MEDS: Acetaminophen 500 MG TAB 1000 MG PO (06:59)
[2020-06-23] MEDS: Celecoxib 200 MG CAP PO (06:59)
[2020-06-23] MEDS: ceFAZolin 2 GM/50 ML BAG IVPB (07:43)
[2020-06-23] MEDS: Lidocaine 2% Multi-Dose 50 ML VIAL (08:07)
[2020-06-23] MEDS: Bupivacaine 0.25% Pres-Free 30 ML VIAL (08:46)
[2020-06-23] MEDS: fentaNYL 100 MCG/2 ML VIAL IVP ×2 (10:46→10:54)
== END 2020-06-23 13:40 | disposition home or self-care (01) ==
PROVIDERS: PCP Family Medicine; Visit Provider Surgery
PROC: 0WQF4ZZ Repair Abdominal Wall, Percutaneous Endoscopic Approach (ICD-10-PCS; CPT 49654; principal; 2020-06-23 07:30)
DX: K43.2 Incisional hernia without obstruction or gangrene (principal); G89.18 Other acute postprocedural pain; E11.9 Type 2 diabetes mellitus without complications
CPT/HCPCS: 49654; C1781; J0690; J1100; J1885; J2001; J2250; J2370; J2405; J2704; J3010

== ENCOUNTER 2020-09-10 01:16 | Outpatient (CLI) | payer BC, SELFPAY ==
[2020-09-10 14:13] LABS: HCT 39.9 % (36.0-46.0); HGB 13.3 g/dL (11.2-15.7); MCH 29.6 pg (27.0-33.0); MCHC 33.3 % (32.0-36.0); MCV 88.7 fL (80-95); MPV 10.1 fL (8.0-11.0); Platelet Count 242 10^3/uL (130-400); RDW 12.8 % (11.7-14.6); RDW-SD 41.9 fL; WBC 8.99 10^3/uL (4.4-10.8)
[2020-09-10 15:01] LABS: COMMENT (LAB VIEW ONLY) 163.35 mg/dL
[2020-09-10 15:26] LABS: Hemoglobin A1C 6.3 % (<5.7)
[2020-09-10 15:39] LABS: TSH (W/Ref FT4) 4.54 uIU/mL (0.36-3.74)
[2020-09-10 16:03] LABS: FREE T4 0.77 ng/dL (0.76-1.46)
== END 2020-09-10 01:17 | disposition home or self-care (01) ==
LOC: LBO 01:16
PROVIDERS: PCP Family Medicine; Visit Provider Family Medicine
DX: Z00.00 Encounter for general adult medical examination without abnormal findings (principal); E11.9 Type 2 diabetes mellitus without complications; D69.3 Immune thrombocytopenic purpura
CPT/HCPCS: 36415; 85027; 82043; 82570; 83036; 84439; 84443

== ENCOUNTER 2021-03-30 02:29 | Outpatient (CLI) | payer BC, SELFPAY ==
[2021-03-30 09:27] LABS: Hemoglobin A1C 6.4 % (<5.7)
[2021-03-30 10:24] LABS: COMMENT (LAB VIEW ONLY) 31.16 mg/dL; Microalb ug/mg Crea 35.9 ug/mg Cr
[2021-03-30 10:40] LABS: ALT 33 U/L (14-59); AST 30 U/L (15-37); Alkaline Phosphatase 71 U/L (46-116); BUN 21 mg/dL (7-18); Bilirubin, Total 0.5 mg/dL (0.2-1.0); CREATININE 0.9 mg/dL (0.55-1.02); Calcium 9.1 mg/dL (8.5-10.1); Calculated LDL 111 mg/dL (<100); Chloride 102 mmol/L (98-107); Cholesterol 195 mg/dL (<200); Glucose 117 mg/dL (74-106); HDL Cholesterol 56 mg/dL (40-60); Potassium 4.4 mmol/L (3.5-5.1); Sodium 139 mmol/L (136-145); TSH (W/Ref FT4) 2.85 uIU/mL (0.36-3.74); Total Protein 7.5 g/dL (6.4-8.2); Triglyceride 141 mg/dL (<150)
== END 2021-03-30 02:30 | disposition home or self-care (01) ==
LOC: LBO 02:29
PROVIDERS: PCP Family Medicine; Visit Provider Family Medicine
DX: E11.9 Type 2 diabetes mellitus without complications; E03.9 Hypothyroidism, unspecified; E78.5 Hyperlipidemia, unspecified; I10 Essential (primary) hypertension
CPT/HCPCS: 36415; 80053; 80061; 82043; 82570; 83036; 84443

== ENCOUNTER 2021-07-25 01:42 | Outpatient (CLI) | payer BC, SELFPAY ==
--- NOTE | 2021-07-25 07:30 | DI.MAMMO_ITS ---
Exam(s) MAMMO SCREENING EXAM: MAMMO SCREENING CLINICAL HISTORY: screening,z12.39. TECHNIQUE: Bilateral full field digital CC and MLO mammographic images were obtained with 3D tomosyn thesis and utilizing computer aided detection (CAD). COMPARISON: Prior mammograms were reviewed, the most recent being October 2019. FINDINGS: There are no new spiculated masses nor malignant appearing microcalcification groups. There is no significant architectural distortion nor skin thickening-retraction. IMPRESSION: No radiographic evidence of malignancy. BI-RADS Category 1 - Negative Breast Density - Category B - Scattered areas of fibroglandular density Breast density Category C or D implies that the patient has dense breast tissue. Dense breast tissue can make it harder to find cancer on a mammogram. Dense breast tissue is also associated with an incr eased risk of breast cancer. This information about the result of the mammogram report was provided to the patient to raise their awareness. Use this report when you speak with the patient about their risks for breast cancer, which includes their family history. At that time, you may recommend additional screening tests (Ultrasoun d or MRI) as these tests may add significant information. A negative radiographic report should not delay biopsy if a dominant or clinically suspicious mass is present. Up to ten percent of cancers are not identified on mammography. A negative report may reinforce clinical impression. Adenosis and dense breasts may obscure an underlying neoplasm. False positive reports average 6 to 10%. Patient will receive a letter notifying them of these results.
== END 2021-07-25 02:02 ==
PROVIDERS: PCP Family Medicine; Visit Provider Family Medicine
DX: Z12.31 Encounter for screening mammogram for malignant neoplasm of breast (principal)
CPT/HCPCS: 77063; 77067

== ENCOUNTER 2021-08-04 04:12 | Outpatient (CLI) | payer BC, SELFPAY ==
[2021-08-04 08:18] LABS: Hemoglobin A1C 6.6 % (<5.7)
== END 2021-08-04 04:13 | disposition home or self-care (01) ==
LOC: LBO 04:12
PROVIDERS: PCP Family Medicine; Visit Provider Family Medicine
DX: E11.9 Type 2 diabetes mellitus without complications (principal)
CPT/HCPCS: 36415; 83036

== ENCOUNTER → 2021-09-28 03:25 | Outpatient (CLI) | payer BC, SELFPAY ==
--- NOTE | 2021-09-28 07:35 | DI.US_ITS ---
APPROVED REPORT EXAM: Comprehensive 2D, Doppler, and color-flow Echocardiogram Patient Location: Out-Patient Resolution Rep: Traci Sanches RDCS (AE) Indications: New cardiac murmuir Other Information Study Quality: Adequate Conclusion Normal left ventricular wall thickness and chamber size. Estimated ejection fraction is 60 to 65%. Wall motion is normal Normal right ventricular size and systolic function Both atria are normal in size There is no structural or hemodynamically significant valvular disease Mildly dilated ascending aorta measuring 3.61 cm Wall motion Left Ventricle The left ventricle is normal size. The left ventricular systolic function is normal. The left ventric ular ejection fraction is within the normal range. There is normal left ventricular wall thickness. T here is normal LV segmental wall motion. There is no ventricular septal defect visualized. LVEF is 60 -65%. Right Ventricle The right ventricle is normal size. The right ventricular systolic function is normal. Atria The left atrium size is normal. The right atrium size is normal. The interatrial septum is intact wit h no evidence for an atrial septal defect. Aortic Valve The aortic valve is normal in structure. Aortic valve is trileaflet. There is no aortic valvular sten osis. Mitral Valve The mitral valve is normal in structure. No evidence of mitral valve stenosis. Trace mitral regurgita tion. Tricuspid Valve The tricuspid valve is normal in structure. There is no tricuspid valve stenosis. Trace tricuspid reg urgitation. Unable to assess PA pressure. Pulmonic Valve The pulmonary valve is normal in structure. There is no pulmonic valvular stenosis. There is no pulmo trevor valvular regurgitation. Great Vessels The aortic root is normal in size. The ascending aorta is mildly dilated. Aortic arch is normal in ca liber. IVC is normal in size and collapses >50% with inspiration. Pericardium There is no pericardial effusion. 2D Dimensions IVSD d PLAX 0.81 cm F: 0.6-1.0 LV Vol A2C d MOD 91.9 mL LVPW d PLAX 0.80 cm F: 0.6 - 1.0 LV Vol A4C d MOD 78.1 mL LVID d PLAX 4.39 cm F: 3.8 - 5.2 LA vol/ BSA A4C s A-L 17.2 mL/m2 LVDs 2.90 cm F: 2.2 - 3.5 LA Area A4C s MOD 14.55 cm2 Ao Root d 2.93 cm F: 2.7 - 3.3 LV EF A4C MOD 60.8 % RA Area A4C 12.08 cm2 LV EF A2C MOD 65.4 % RA Vol/ BSA A4C s A-L 12.5 mL/m2 LV EF Biplane MOD 60.5 % Ao Asc Diam d 3.61 cm F: 2.3 - 3.1 SV 52.56 mL LV EF Teichholz 62.9 % SV Index 26.59 mL/m2 LVEF (Jose's) 60.46 % F: 54 - 74 LV Volume 65.45 mL F: 46 - 106 LV Volume Index 33.22 mL/m2 F: 29 - 61 LV Vol Biplane MOD 86.9 mL FS 33.75 % M-Mode TAPSE 1.99 cm (M/F) >1.7 LV Diastology MV E' medial 0.088 (>0.07 m/s) E/A Ratio 0.7 LV E/e MED 6.80 (<14) MV E Vmax 0.60 (0.4-1.3 m/s) MV E' lateral 0.113 (>0.1 m/s) MV A Vmax 0.85 (0.4-1.3 m/s) LV E/e LAT 5.25 (<14) MV E/A Ratio 0.69 MV E/E' medial 6.81 MV E/E' lateral 5.28 Aortic Valve LVOT Area 2.84 cm2 AoV Area Vmax 2.46 cm2 LVOT Vmax 1.54 m/s AoV Area/ BSA (Vmax) 1.24 cm2/m2 LVOT Mean John. 1.14 m/s ABY Mean John. 2.69 cm2 LVOT Peak Grad 9.4 mmHg ABY Mean John. Index 1.36 cm2/m2 LVOT Mean Grad 5.6 mmHg LVOT VTI 0.391 m LVOT Diam s 1.90 cm AoV Vmax 1.77 m/s Velocity Ratio 0.87 AoV Mean John. 1.20 m/s AoV Peak Grad 12.6 mmHg LVOT SV 110.79 mL AoV Mean Grad 6.7 mmHg AoV VTI 0.412 m AoV Area VTI 2.69 cm2 AoV Area/ BSA (VTI) 1.36 cm/m2 Mitral Valve MV DT 410 (160-240 msec) MV PHT 119 msec MV Area PHT 1.85 cm2 MV VTI 0.343 m MV Area VTI 3.23 (4.0-6.0 cm2) Pulmonary Valve PV Vmax 1.14 (0.5-1.5 m/s) RVOT Peak Gr. 4.05 mmHg PV Peak Grad 5.2 mmHg RVOT Mean Gr. 2.00 mmHg PV Mean Grad 3.1 mmHg RVOT VTI 0.219 m PV VTI 0.251 m RVOT Vmax 1.01 m/s
== END ==
PROVIDERS: PCP Family Medicine; Visit Provider Family Medicine
DX: R01.1 Cardiac murmur, unspecified (principal)
CPT/HCPCS: 93306

== ENCOUNTER 2021-10-19 02:29 | Outpatient (CLI) | payer BC, SELFPAY ==
[2021-10-19 16:30] LABS: HCT 38.1 % (36.0-46.0); HGB 12.9 g/dL (11.2-15.7); MCH 30.1 pg (27.0-33.0); MCHC 33.9 % (32.0-36.0); MCV 89 fL (80-95); Platelet Count 232 10^3/uL (130-400); RBC 4.29 10^6/uL (3.93-5.22); RDW 12.7 % (11.7-14.6); RDW-SD 41.1 fL; WBC 9.26 10^3/uL (4.4-10.8)
[2021-10-19 16:53] LABS: Hemoglobin A1C 6.5 % (<5.7)
[2021-10-19 16:54] LABS: COMMENT (LAB VIEW ONLY) 31.75 mg/dL; Microalb ug/mg Crea 14.2 ug/mg Cr
[2021-10-19 17:32] LABS: ALT 32 U/L (14-59); AST 40 U/L (15-37); Albumin 3.8 g/dL (3.4-5.0); Alkaline Phosphatase 76 U/L (46-116); Anion Gap 10.3 mmol/L (3-11); BUN 23 mg/dL (7-18); Bilirubin, Total 0.5 mg/dL (0.2-1.0); CO2 26.7 mmol/L (21.0-32.0); CREATININE 1.1 mg/dL (0.55-1.02); Calcium 8.8 mg/dL (8.5-10.1); Calculated LDL 106 mg/dL (<100); Chloride 101 mmol/L (98-107); Cholesterol 208 mg/dL (<200); Estimated GFR 48.96 (mL/min/1.73m2); Glucose 114 mg/dL (74-106); HDL Cholesterol 51 mg/dL (40-60); Potassium 3.7 mmol/L (3.5-5.1); Sodium 138 mmol/L (136-145); TSH (W/Ref FT4) 3.03 uIU/mL (0.36-3.74); Total Protein 7.4 g/dL (6.4-8.2); Triglyceride 255 mg/dL (<150)
== END 2021-10-19 02:30 | disposition home or self-care (01) ==
LOC: LBO 02:29
PROVIDERS: PCP Family Medicine; Visit Provider Family Medicine
DX: E11.9 Type 2 diabetes mellitus without complications (principal); E78.5 Hyperlipidemia, unspecified; I10 Essential (primary) hypertension; D69.3 Immune thrombocytopenic purpura
CPT/HCPCS: 36415; 80053; 80061; 85027; 82043; 82570; 83036; 84443

== ENCOUNTER 2022-03-16 21:34 | Outpatient (REF) | payer BC, SELFPAY | END 2022-03-16 21:35 | disposition home or self-care (01) | LOC: LBN 21:34 | PROVIDERS: PCP Family Medicine; Visit Provider Physician Assistant Medical | DX: J02.9 Acute pharyngitis, unspecified (principal) | CPT/HCPCS: 87070 ==

== ENCOUNTER 2022-04-17 03:26 | Outpatient (CLI) | payer BC, SELFPAY ==
[2022-04-17 16:26] LABS: ALT 30 U/L (14-59); AST 35 U/L (15-37); Albumin 4.1 g/dL (3.4-5.0); Alkaline Phosphatase 78 U/L (46-116); Anion Gap 8.7 mmol/L (3-11); BUN 28 mg/dL (7-18); Bilirubin, Total 0.5 mg/dL (0.2-1.0); CO2 29.3 mmol/L (21.0-32.0); CREATININE 1.1 mg/dL (0.55-1.02); Calcium 9.4 mg/dL (8.5-10.1); Chloride 99 mmol/L (98-107); Estimated GFR 53.39 (mL/min/1.73m2); Glucose 101 mg/dL (74-106); Potassium 3.6 mmol/L (3.5-5.1); Sodium 137 mmol/L (136-145); Total Protein 8.2 g/dL (6.4-8.2)
== END 2022-04-17 03:27 | disposition home or self-care (01) ==
PROVIDERS: PCP Family Medicine; Visit Provider Family Medicine
DX: I10 Essential (primary) hypertension (principal); E03.9 Hypothyroidism, unspecified
CPT/HCPCS: 36415; 80053

== ENCOUNTER 2023-05-10 11:07 | Outpatient (CLI) | payer BC, SELFPAY ==
[2023-05-10 12:22] LABS: HCT 40.7 % (36.0-46.0); HGB 13.7 g/dL (11.2-15.7); MCH 29.6 pg (27.0-33.0); MCHC 33.7 % (32.0-36.0); MCV 88 fL (80-95); MPV 10.4 fL (8.0-11.0); Platelet Count 231 10^3/uL (130-400); RBC 4.63 10^6/uL (3.93-5.22); RDW 12.9 % (11.7-14.6); RDW-SD 41.3 fL; WBC 6.92 10^3/uL (4.4-10.8)
[2023-05-10 13:53] LABS: Calculated LDL 92 mg/dL (<100); Cholesterol 169 mg/dL (<200); HDL Cholesterol 45 mg/dL (40-60); Triglyceride 160 mg/dL (<150); Vitamin B12 657 pg/mL (193-986)
[2023-05-10 14:14] LABS: TSH (W/Ref FT4) 3.58 uIU/mL (0.36-3.74); Uric Acid 5.9 mg/dL (2.6-6.0)
== END 2023-05-10 11:08 | disposition home or self-care (01) ==
LOC: LOS 11:07
PROVIDERS: PCP Family Medicine; Referring Provider Family Medicine; Visit Provider Family Medicine
DX: E03.9 Hypothyroidism, unspecified (principal); I10 Essential (primary) hypertension; Z00.00 Encounter for general adult medical examination without abnormal findings; D69.3 Immune thrombocytopenic purpura
CPT/HCPCS: 36415; 80061; 85027; 82607; 84443; 84550

== ENCOUNTER → 2023-06-05 00:39 | Outpatient (CLI) | payer BC, SELFPAY | PROVIDERS: PCP Family Medicine; Visit Provider Family Medicine | DX: Z12.31 Encounter for screening mammogram for malignant neoplasm of breast (principal); R92.323 Mammographic fibroglandular density, bilateral breasts | CPT/HCPCS: 77063; 77067 ==

== ENCOUNTER 2023-12-11 19:12 | Outpatient (REF) | payer MEDICARE, SELFPAY ==
[2023-12-11 22:08] LABS: COMMENT (LAB VIEW ONLY) 112.22 mg/dL; Microalb ug/mg Crea 11.4 ug/mg Cr
== END 2023-12-11 19:13 | disposition home or self-care (01) ==
LOC: LBN 19:12
PROVIDERS: PCP Family Medicine; Visit Provider Family Medicine
DX: E11.9 Type 2 diabetes mellitus without complications (principal); I10 Essential (primary) hypertension; E03.9 Hypothyroidism, unspecified
CPT/HCPCS: 82043; 82570

== ENCOUNTER 2024-05-28 01:52 | Outpatient (CLI) | payer MEDICARE, SELFPAY ==
[2024-05-28 12:55] LABS: Hemoglobin A1C 6.4 % (<5.7)
[2024-05-28 13:19] LABS: ALT 27 U/L (14-59); AST 30 U/L (15-37); Alkaline Phosphatase 78 U/L (46-116); Anion Gap 11.3 mmol/L (3-11); BUN 26 mg/dL (7-18); Bilirubin, Total 0.82 mg/dL (0.2-1.0); CO2 26.7 mmol/L (21.0-32.0); CREATININE 1.1 mg/dL (0.55-1.02); Calcium 9.9 mg/dL (8.5-10.1); Calculated LDL 78 mg/dL (<100); Chloride 102 mmol/L (98-107); Cholesterol 168 mg/dL (<200); Estimated GFR 52.73 (mL/min/1.73m2); Glucose 110 mg/dL (74-106); HDL Cholesterol 65 mg/dL (40-60); Potassium 4.8 mmol/L (3.5-5.1); Sodium 140 mmol/L (136-145); TSH (W/Ref FT4) 3.56 uIU/mL (0.36-3.74); Total Protein 8.1 g/dL (6.4-8.2); Triglyceride 126 mg/dL (<150)
== END 2024-05-28 01:53 | disposition home or self-care (01) ==
LOC: LBO 01:52
PROVIDERS: PCP Family Medicine; Visit Provider Family Medicine
DX: I10 Essential (primary) hypertension (principal); E03.9 Hypothyroidism, unspecified; E11.9 Type 2 diabetes mellitus without complications
CPT/HCPCS: 36415; 80053; 80061; 83036; 84443

== ENCOUNTER 2024-10-14 02:31 | Outpatient (CLI) | payer MEDICARE, SELFPAY ==
[2024-10-14 14:06] LABS: TSH (W/Ref FT4) 3.44 uIU/mL (0.36-3.74)
== END 2024-10-14 02:32 | disposition home or self-care (01) ==
LOC: LBO 02:31
PROVIDERS: PCP Family Medicine; Visit Provider Family Medicine
DX: E03.9 Hypothyroidism, unspecified (principal)
CPT/HCPCS: 36415; 84443